=== PATIENT | female | born 1980 | race Two or more races ===

== ENCOUNTER 2024-05-26 13:00 | Emergency (ER) | payer SELFPAY ==
[~2024-05-26] VITALS: Ht 167.6 cm; Wt 65.0 kg
[2024-05-26 13:03] VITALS: BP 114/58; PULSE 78; RESP 18; TEMP 98.2; O2SAT 100
[2024-05-26] MEDS ORDERED: LIDOCAINE 5% TRANSDERMAL PATCH TD ONE (16:15)
[2024-05-26] MEDS ORDERED: BACLOFEN 10 MG TABLET PO ONE (16:15)
== END 2024-05-26 17:05 | disposition left against medical advice (07) ==
LOC: EDBD 13:00 → EMS 13:00
DX: M54.9 Dorsalgia, unspecified (principal)
CPT/HCPCS: 99281; Z7502